=== PATIENT | male | born 1985 | race Caucasian/White ===

== ENCOUNTER 2016-10-07 16:56 | Emergency (ER) | payer OTHER ==
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
--- NOTE | 2016-10-07 17:40 | ED ORDER SUMMARY ---
..... Patient: SHELBY SOTO OrderSheet [facility] VisitID: [id number] [place] [address] 30y, M Registration Date/Time: 10/07/2016 ORDER SHEET Weight: 118.8 kg (stated) Allergies: No Known Drug Allergy GENERAL ORDERS: GC/Chlamydia, Urine (Urine, Clean Catch) (urine) Urgent (17:36 10/07/2016 HBivens A.R.N.P.) (Ack 17:42 HSoule) (19:07 HSoule) HIV I and II Urgent (17:37 10/07/2016 HBivens A.R.N.P.) (Ack 17:44 LNations ER Tech1) (19:07 HSoule) HepBSAG Urgent (17:37 10/07/2016 HBivens A.R.N.P.) (Ack 17:44 LNations ER Tech1) (19:07 HSoule) HepCAB Urgent (17:37 10/07/2016 HBivens A.R.N.P.) (Ack 17:44 LNations ER Tech1) (19:07 HSoule) SGPT Urgent (17:37 10/07/2016 HBivens A.R.N.P.) (Ack 17:44 LNations ER Tech1) (19:07 HSoule) UA-Culture if indicated Urgent (17:37 10/07/2016 HBivens A.R.N.P.) (Ack 17:42 HSoule) (19:07 HSoule) MEDICATION ORDERS: Ceftriaxone IM 250 mg (NOW) (17:36 10/07/2016 HBivens A.R.N.P.) (Ack 17:42 HSoule) (18:03 HSoule) IV FLUIDS: ORDER SHEET NOTES: [Electronically signed by Jenna Mercado (19:10 10/07/2016)] [Electronically signed by Darlin Vidal A.R.N.P. (00:05 10/08/2016)] [Electronically locked/signed by Jenna Mercado (19:10 10/07/2016)]
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
--- NOTE | 2016-10-07 17:40 | ED ORDER SUMMARY ---
..... Patient: SHELBY SOTO OrderSheet [facility] VisitID: [id number] [place] [address] 30y, M Registration Date/Time: 10/07/2016 ORDER SHEET Weight: 118.8 kg (stated) Allergies: No Known Drug Allergy GENERAL ORDERS: GC/Chlamydia, Urine (Urine, Clean Catch) (urine) Urgent (17:36 10/07/2016 HBivens A.R.N.P.) (Ack 17:42 HSoule) (19:07 HSoule) HIV I and II Urgent (17:37 10/07/2016 HBivens A.R.N.P.) (Ack 17:44 LNations ER Tech1) (19:07 HSoule) HepBSAG Urgent (17:37 10/07/2016 HBivens A.R.N.P.) (Ack 17:44 LNations ER Tech1) (19:07 HSoule) HepCAB Urgent (17:37 10/07/2016 HBivens A.R.N.P.) (Ack 17:44 LNations ER Tech1) (19:07 HSoule) SGPT Urgent (17:37 10/07/2016 HBivens A.R.N.P.) (Ack 17:44 LNations ER Tech1) (19:07 HSoule) UA-Culture if indicated Urgent (17:37 10/07/2016 HBivens A.R.N.P.) (Ack 17:42 HSoule) (19:07 HSoule) MEDICATION ORDERS: Ceftriaxone IM 250 mg (NOW) (17:36 10/07/2016 HBivens A.R.N.P.) (Ack 17:42 HSoule) (18:03 HSoule) IV FLUIDS: ORDER SHEET NOTES: [Electronically signed by Jenna Mercado (19:10 10/07/2016)] [Electronically signed by Darlin Vidal A.R.N.P. (00:05 10/08/2016)] [Electronically locked/signed by Jenna Mercado (19:10 10/07/2016)]
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
--- NOTE | 2016-10-08 00:06 | ED DISCHARGE INSTRUCTIONS ---
Patient: SHELBY SOTO General Instructions [facility] VisitID: [id number] [place] [address] 30y, M Registration Date/Time: 10/07/2016 Exposure to STD: chlamydia, gonorrhea and HIV. INSTRUCTIONS Warnings: GENERAL WARNINGS: Return or contact your physician immediately if your condition worsens or changes unexpectedly, if not improving as expected, or if other problems arise. Specifically return if problem worsens. Prescription Medications: Zithromax 500 mg tablets: take 2 orally initially, for the next day. Total course 1 day. No refills. Combivir 150 mg / 300 mg: take 1 tablet orally every 12 hours. Dispense ten (10). No refills. Substitution is permissible. Follow-up: Follow up with your doctor in about three days even if well. Call for an appointment. Summary of care provided to patient. Understanding of the discharge instructions verbalized by patient. ADDITIONAL INFORMATION STD, Suspected [R/O Gc & Chlamydia: Culture Only] Your symptoms suggest that you may have a STD (sexually transmitted disease). The most common bacteria that cause STD's are chlamydia and gonorrhea. Both are highly contagious and are passed by sexual contact with an infected partner. Symptoms begin within 1-3 weeks after exposure. There is usually a discharge from the penis or vagina and burning during urination. Many women with this infection will have only mild symptoms or no symptoms at all early in the disease. Culture tests have been taken. These will show if you have an infection with chlamydia or gonorrhea. This infection can be treated and cured with antibiotic medication. Home Care: 1) Avoid sexual activity until you know that your test result is negative. 2) If a culture was done and it is positive: Both you and your sexual partner need to be treated, even if your partner has no symptoms. Contact your doctor or go to an urgent care clinic or the Public Health Department to be examined and treated. Avoid sexual activity until both you and your partner have completed all antibiotic medicine and told that you are no longer contagious. Learn about safe sex practices and use these in the future. The safest sex is with a partner who has tested negative and only has sex with you. Condoms offer protection from spreading some sexually transmitted diseases including gonorrhea, chlamydia and HIV, but are not a guarantee. 3) Learn about safe sex practices and use these in the future. The safest sex is with a partner who has tested negative and only has sex with you. Condoms offer protection from spreading some sexually transmitted diseases including Gonorrhea, Chlamydia and HIV, but are not a guarantee. Follow Up with your doctor or as advised by our staff. You may call us in three days for the results of your culture, or as directed. If your culture test is positive and you are treated, another culture should be taken 4-6 weeks after treatment to be sure the infection has cleared. Follow up with your doctor or the Public Health Department for complete STD screening, including HIV testing. For more information about STDs, contact the National STD Hotline: . Get Prompt Medical Attention if any of the following occur: -- Fever over 100.4 F (38.0 C) -- New or increasing lower abdominal pain or back pain -- Unexpected vaginal bleeding -- Weakness, dizziness or fainting -- Repeated vomiting -- Inability to urinate due to pain -- Rash or joint pain -- Painful open sores on the penis or around the outer vagina -- Enlarged painful lymph nodes (lumps) in the groin -- Testicle pain or scrotal swelling in men Std (Urethritis) (Male, Adult: Gc Or Chlamydia) You have an infection in the urethra (the channel in the penis that passes urine). This is most often due to a bacterial infection with either "Chlamydia" or "Gonorrhea." This is a sexually transmitted disease (STD). It is highly contagious and passed by sexual contact with an infected partner. Symptoms begin within 1-3 weeks after exposure. There is usually a discharge from the penis and burning during urination. Many women with this infection will have only mild symptoms or no symptoms at all early in the disease. A culture test may be taken to confirm the diagnosis. Antibiotics may be started before the culture test returns. Home Care: Your sexual partner needs to be treated even if there are no symptoms. Your partner should contact their own doctor or go to an urgent care clinic or the Public Health Department to be examined and treated. Avoid sexual activity until both you and your partner have completed all antibiotic medicine, and you have been told by your doctor that you are no longer contagious. Take all antibiotic medicine as directed until it is finished. Otherwise, symptoms may recur. Learn about safe sex practices and use these in the future. The safest sex is with a partner who has tested negative and only has sex with you. Condoms offer protection from spreading some sexually transmitted diseases including Gonorrhea, Chlamydia and HIV, but are not a guarantee. Follow Up with your doctor or as advised by our staff. If a culture test was taken, you may call us in three days for the results, or as directed. Another culture test should be taken 4-6 weeks after treatment to be sure the infection has cleared. Follow up with your doctor or the Public Health Department for complete STD screening, including HIV testing. For more information about STD's, contact the National STD Hotline: . Get Prompt Medical Attention if any of the following occur: No improvement after three days of treatment Inability to urinate due to pain Rash or joint pain Painful sores on the penis Enlarged painful lymph nodes (lumps) in the groin Testicle pain or swelling of the scrotum Genital Herpes Genital herpes is a common sexually transmitted disease (STD). It is caused by the Herpes Simplex virus. One out of five (20%) teens and adults carry the herpes virus. During an outbreak, it causes small blisters that break open, leaving small painful ulcers (sores) in the genital area. Eventually, scabs form and the ulcers heal. In women, these are most often on the skin just outside the vaginal opening. They can occur on the buttocks, anus or cervix. In men, the sores are usually on the tip, sides or base of the penis. They also occur on the scrotum, buttocks or thighs. The first episode begins within 2-3 weeks after exposure to an infected sexual partner. It may last 1-3 weeks and cause headache, muscle ache and fevers. The first outbreak is usually the worst. Because the virus remains in the body even after the sores heal, most persons will have recurrences. The frequency of recurrent outbreaks varies with each person. Some people will never have another outbreak. Others will have several episodes a year. Later outbreaks are usually shorter, milder and less painful. For many, the number of outbreaks tends to decrease over time. Various factors may trigger a recurrence. These include: Emotional stress Menstruation Presence of another illness (cold, flu, or fever from any cause) Overexertion and fatigue Weakened immune system Home Care: It is very important that you do not have sexual relations until ALL the herpes sores have healed completely. Wash the affected area gently with mild soap and water. Wash your hands after touching the affected area. You may use acetaminophen (Tylenol) or ibuprofen (Motrin, Advil) to control pain, unless another pain medicine was prescribed. [NOTE: If you have chronic liver or kidney disease or ever had a stomach ulcer or GI bleeding, talk with your doctor before using these medicines.] Your doctor may prescribe anti-viral medicine during the first outbreak. This will help the sores heal faster. Antiviral medicine may also be prescribed to have at home to take at the first sign of a recurrence. This will shorten the symptoms of a recurrence. For persons with frequent outbreaks, daily therapy may be prescribed. This will reduce the frequency of attacks. Daily therapy may also reduce risk of spread of herpes to your sexual partner. Discuss the risks and benefits of daily therapy with your doctor. If you are a woman who is now or become in the future, let your doctor know that you have had herpes since this may affect the method of delivery. Preventing Spread To Others: The virus is spread by sexual contact with someone who has the herpes virus. The risk of spread is highest when the sores are present. However, there is a chance of spreading the virus even when sores are not visible . Inform future sexual partners that you have herpes and that he/she may become infected. To reduce the risk of passing the virus to a partner who has never had herpes, avoid sexual relations at the first sign of an outbreak and until the ulcers are fully healed. Latex condoms reduce the risk of spread between outbreaks if the infected site is covered, but they do not guarantee protection. Follow-Up: Persons who have just learned that they have herpes may feel guilt, anger, and be emotionally upset. Getting the facts helps put you back in control. Follow up with your doctor or the Public Health Dept for complete STD screening, including HIV testing. For more information about Herpes, see the "National Herpes Resource Center" http://www.ashastd.org/herpes/herpes_overview.cfm ; or call the National STD Hotline: 982.534.3124. Get Prompt Medical Attention if any of the following occur: Inability to urinate due to pain Swelling or increasing redness in the genital area Unusual drowsiness, weakness or confusion Headache, stiff neck Discharge from the vagina or penis Increasing back or abdominal pain Rash or joint pain HIV - AIDS HIV (Human Immune-deficiency Virus) is a virus that attacks the immune system. It decreases the bodys ability to fight infection and to stop the growth of certain types of cancer cells. Being HIV positive is not the same as having AIDS. AIDS (Acquired Immune-deficiency Syndrome) is a complication of an HIV infection (see below). Early in HIV disease, you may have no symptoms. As the disease progresses, and the immune system weakens, HIV symptoms may appear. These include yeast infections of the mouth, fevers, prolonged diarrhea, sores on the sides of the tongue, loss of or altered feeling in the hands or feet, infection with shingles or meningitis. Women may develop recurrent or persistent yeast infection of the vagina, pelvic infection, or an abnormal Pap smear. After infection with HIV, it can take years before developing AIDS. AIDS is diagnosed when an illness occurs that would rarely occur in a person with a normal immune system. These diseases include PCP (pneumocystis) pneumonia, lymphoma, tuberculosis (TB), Kaposi's sarcoma, and others. If you have a positive HIV test, you can spread the virus to others. This is true even if you do not have any symptoms of HIV or AIDS. HIV is most often transmitted by sexual contact (through blood or semen) or by sharing needles/syringes during IV drug use. Routine non-sexual contact does not transmit the disease. Therefore, a person with HIV virus is not contagious to the general population. Without treatment, HIV will almost always lead to AIDS. However, powerful drugs are now available that slow down the growth of the virus. These drugs do not cure HIV infection but make it possible for people with HIV to live a long time. Drug therapy for HIV is usually started based on three factors: 1) the viral load (the amount of virus in your blood); 2) the CD4 cell count (a measure of your immune system); and 3) your symptoms. Home Care: 1) If you have been recently diagnosed with HIV, this news can be a great shock. Psychotherapy, counseling and group support will be very helpful in understanding your feelings, and helping you deal with anxiety and depression. Ask for help. Don't try to get through this on your own. A support system is essential for your physical and emotional health. 2) Develop a take-charge attitude about your own health. Learn the facts about HIV/AIDS. Learn ways to strengthen your immune system through diet, exercise and stress management. 3) Talk to your doctor about the medicines used to treat your condition. Become a participant in your health care. This will help you feel more in control of your health and your life and combat feelings of helplessness. 4) Inform your current and recent sexual contacts of your diagnosis so that they may be tested. For testing, your partner should contact their doctor or the Public Health Dept. Learn about safe-sex practices. Inform any future sexual partners of your diagnosis. Condoms offer protection from spreading HIV, but are not a guarantee. Follow Up with your doctor, or as advised by our staff. You will need routine blood testing to monitor the strength of your immune system. If you are HIV positive without symptoms, watch for symptoms of HIV disease listed above and contact your doctor if these appear. For more information, look at these web sites: http://www.webmd.com/hiv-aids/guide/MML-ADPX-rcmrewqx-facts http://www.aidsinfonet.org/factsheets.php [NOTE: A radiologist will review any X-rays that were taken. We will notify you of any new findings that may affect your care.] Get Prompt Medical Attention if any of the following occur: -- Unexplained fever over 100.4 F (38.0 C) -- Persistent cough or coughing up blood -- Shortness of breath or difficulty breathing -- Severe headache or stiff neck -- Painful, burning rash on one side of the body -- White spots in the mouth -- Vaginal discharge or lower abdominal pain -- Difficulties with your vision -- Extreme weakness, fatigue, or unexplained weight loss Urethritis, Gonorrhea (Male, Treated) You have an infection in the urethra (the channel in the penis that passes urine). This is caused by a bacteria called "Gonorrhea." This infection is a sexually transmitted disease (STD). It is highly contagious and passed by sexual contact with an infected partner. Less often, it can infect the mouth, throat and anus. Symptoms begin within seven days after exposure. They usually include a milky discharge from the penis and burning during urination. Many women with this infection will have only mild symptoms or no symptoms at all early in the disease. This infection can be treated and cured. Treatment is with antibiotic medicine. Home Care: Your sexual partner needs to be treated even if there are no symptoms. Your partner should contact their own doctor or go to an urgent care clinic or the Public Health Department to be examined and treated. Avoid sexual activity until both you and your partner have completed all antibiotic medicine, and you have been told by your doctor that you are no longer contagious. Take all antibiotic medicine as directed until it is finished. Otherwise, symptoms may recur. Learn about safe sex practices and use these in the future. The safest sex is with a partner who has tested negative and only has sex with you. Condoms offer protection from spreading some sexually transmitted diseases including Gonorrhea, Chlamydia and HIV, but are not a guarantee. Follow Up with your doctor or as advised by our staff. If a culture test was taken, you may call us in three days for the results, or as directed. Another culture test should be taken 4-6 weeks after treatment to be sure the infection has cleared. Follow up with your doctor or the Public Health Department for complete STD screening, including HIV testing. For more information about STD's, contact the National STD Hotline: . Get Prompt Medical Attention if any of the following occur: No improvement after three days of treatment Inability to urinate due to pain Rash or joint pain Painful sores on the penis Enlarged painful lymph nodes (lumps) in the groin Testicle pain or swelling of the scrotum Genital Warts Genital warts are painless single or grouped bumps with a flat or rough surface. They occur on the penis, scrotum, vagina, vulva and anus. After exposure to a partner with genital warts, there is about a 60% chance that an infection will occur. It takes about 3 weeks to 3 months for most warts to appear after exposure. However, sometimes a wart may not appear until many years after exposure. This makes it difficult to know exactly who you got the infection from. For this reason, a new genital wart infection does not mean that you or your partner has been unfaithful in the relationship. Genital warts are caused by the human papilloma virus (HPV). This is the most common sexually transmitted disease (STD) in the [place] Over half of all sexually active men and women become infected with HPV at some time in their lives. Most people who become infected with HPV will not have any warts, but they can still transmit the virus. There about 30 types of HPVthat can cause genital warts. Most cause no other problems. However, a few types of HPV can infect a womans cervix. If a cervical infection with one of these viruses goes undiagnosed and untreated, the woman is at increased risk for having cervical cancer. It takes many months to years for signs of cancer to develop from an HPV virus infection of the cervix. However, women with genital warts and women with a partner who has genital warts should be sure they receive regular Pap smear testing to check for changes that may lead to cervical cancer. Most warts go away on their own within 12 months, without treatment. However, treatments are available to remove the warts sooner and reduce the risk of spread to others. There are many types of wart treatments (freezing, cutting, laser, applying liquid or gel to dissolve it). About half the time more than one treatment session is needed to make the wart go away. But even after the wart is gone, the virus remains in the skin and a recurrence of the wart is possible. An HPV vaccine is currently available. Vaccination protects against certain strains of HPV that cause genital warts and cervical cancer. Even though you have HPV, being vaccinated could help protect you from getting other types of HPV in the future. This is true for your partner as well. Ask your healthcare provider if getting vaccinated makes sense for you. Urge your partner to also ask about getting vaccinated. Home Care: If you have been prescribed an ointment or gel to treat the wart, apply it exactly as directed. Be careful not to get it on the nearby normal skin. After treatment, keep the area clean and dry. Wear loose-fitting cotton underwear to avoid chafing. If you have pain after treatment, sit in a tub with a few inches of warm water for 20 minutes, 3 times a day, for the next 2 to 3days. Add a cup of cornstarch or baking soda, or a packet of Aveeno Oatmeal or Domeboro powder (both available without a prescription), to soothe the skin. Preventing Spread To Others: This virus is spread by sexual contact with someone who is infected.The risk of spread is highest when visible warts are present. However, there is a very small chance of spreading the virus even after treatment, when the wart is not visible. Condoms offer only limited protection from the spread of warts. Partners tend to share the same HPV types, so it is probably not necessary to refrain from sex with your current partner. However, do not have sex with any new partner until all visible warts are gone. Men should inform current and future sexual partners that they have had genital warts. This way, the woman can be sure to have regular Pap smear testing with her doctor. Follow-Up: Persons who have just learned that they have genital warts may feel guilt, anger, and be emotionally upset. Getting the facts helps put you back in control. Follow up with your doctor or the Public Health Department for complete STD screening, including HIV testing. For more information call the National STD Hotline: 415.321.1168. After treatment, you should be rechecked in about 3 months to be sure all warts are gone. Get Prompt Medical Attention if any of the following occur: After treating a wart: Redness or burning that does not stop within a few hours Swelling of the tissues around the treated area Pus draining from the treated area Difficulty passing urine or stool Discharge from the vagina or penis Rash or joint pain Urethritis, Chlamydia [Male, Treated] You have an infection in the urethra (the channel in the penis that carries urine). This is caused by a bacteria called "Chlamydia". This infection is a sexually transmitted disease. It is highly contagious and is passed by sexual contact with an infected partner. Symptoms begin within three weeks after exposure. There is usually a watery discharge from the penis and burning during urination. Many women with this infection will have only mild symptoms or no symptoms at all early in the disease. This infection can be treated and cured. Treatment is with antibiotic medicine. Home Care: 1) Your sexual partner needs to be treated even if there are no symptoms. Your partner should contact their own doctor or go to an urgent care clinic or the Public Health Department to be examined and treated. 2) Avoid sexual activity until both you and your partner have completed all antibiotic medicine, and you have been told by your doctor that you are no longer contagious. 3) Take all antibiotic medicine as directed until it is finished. Otherwise, symptoms may recur. 4) Learn about safe sex practices and use these in the future. The safest sex is with a partner who has tested negative and only has sex with you. Condoms offer protection from spreading some sexually transmitted diseases including Gonorrhea, Chlamydia and HIV, but are not a guarantee. Follow Up with your doctor or as advised by our staff. If a culture test was taken, you may call us in three days for the results, or as directed. Another culture test should be taken 4-6 weeks after treatment to be sure the infection has cleared. Follow up with your doctor or the Public Health Department for complete STD screening, including HIV testing. For more information about STD's, contact the National STD Hotline: . Get Prompt Medical Attention if any of the following occur: -- No improvement after three days of treatment -- Inability to urinate due to pain -- Rash or joint pain -- Painful sores on the penis -- Enlarged painful lymph nodes (lumps) in the groin -- Testicle pain or swelling of the scrotum Azithromycin Oral tablet What is this medicine? AZITHROMYCIN (az ith nadia MYE sin) is a macrolide antibiotic. It is used to treat or prevent certain kinds of bacterial infections. It will not work for colds, flu, or other viral infections. How should I use this medicine? Take this medicine by mouth with a full glass of water. Follow the directions on the prescription label. The tablets can be taken with food or on an empty stomach. If the medicine upsets your stomach, take it with food. Take your medicine at regular intervals. Do not take your medicine more often than directed. Take all of your medicine as directed even if you think your are better. Do not skip doses or stop your medicine early. Talk to your trial justice regarding the use of this medicine in children. Special care may be needed. What side effects may I notice from receiving this medicine? Side effects that you should report to your doctor or health adult caregiver as soon as possible: allergic reactions like skin rash, itching or hives, swelling of the face, lips, or tongue confusion, nightmares or hallucinations dark urine difficulty breathing hearing loss irregular heartbeat or chest pain pain or difficulty passing urine redness, blistering, peeling or loosening of the skin, including inside the mouth white patches or sores in the mouth yellowing of the eyes or skin Side effects that usually do not require medical attention (report to your doctor or health adult caregiver if they continue or are bothersome): diarrhea dizziness, drowsiness headache stomach upset or vomiting tooth discoloration vaginal irritation What may interact with this medicine? Do not take this medicine with any of the following medications: lincomycin This medicine may also interact with the following medications: amiodarone antacids cyclosporine digoxin magnesium nelfinavir phenytoin warfarin What if I miss a dose? If you miss a dose, take it as soon as you can. If it is almost time for your next dose, take only that dose. Do not take double or extra doses. Where should I keep my medicine? Keep out of the reach of children. Store at room temperature between 15 and 30 degrees C (59 and 86 degrees F). Throw away any unused medicine after the expiration date. What should I tell my health care provider before I take this medicine? They need to know if you have any of these conditions: kidney disease liver disease irregular heartbeat or heart disease an unusual or allergic reaction to azithromycin, erythromycin, other macrolide antibiotics, foods, dyes, or preservatives or trying to get breast-feeding What should I watch for while using this medicine? Tell your doctor or health adult caregiver if your symptoms do not improve. Do not treat diarrhea with over the counter products. Contact your doctor if you have diarrhea that lasts more than 2 days or if it is severe and watery. This medicine can make you more sensitive to the sun. Keep out of the sun. If you cannot avoid being in the sun, wear protective clothing and use sunscreen. Do not use sun lamps or tanning beds/booths. You have been given the following additional information: STD, Suspected (Culture Only) Urethritis, Male (Gc Vs. Chlam) Herpes Genitalis, Hsv: Type Ii HIV-AIDS, New Dx Urethritis, Male (Gonorrhea) Warts, Genital Chlamydia, Male Azithromycin Oral tablet (Electronically signed by Darlin Vidal A.R.NElizabeth 10/08/2016 0:05)
--- NOTE | 2016-10-08 00:06 | ED MAR SUMMARY ---
..... Medication Administration Record [facility] [address] [place] [address] Patient: SHELBY SOTO Visit ID: [id number] 30y, M Weight: 118.8 kg Height/Length: 66 in BMI: 42.3 ALLERGIES: No Known Drug Allergy Given 17:53 10/07/2016 Jenna Mercado, Medication Administered: CEFTRIAXONE [IM], Dose: 250 mg IM. Medication Ordered: Ceftriaxone IM 250 mg (NOW).
--- NOTE | 2016-10-08 00:06 | ED MED RECONCILIATION SUMMARY ---
Patient: SHELBY SOTO Medication Reconciliation Report [facility] VisitID: [id number] [address] [place] [address] 30y, M Registration Date/Time: 10/07/2016 Weight: 118.8 kg Height/Length: 66 in. BMI: 42.3 ALLERGIES: No Known Drug Allergy The patient's Home Medications are listed below: THE FOLLOWING MEDICATIONS NEED TO BE RECONCILED: Atorvastatin Calcium Oral FluPHENAZine HCl Oral (5 mg), 2 tab in am & 3 tab in evening Gabapentin Oral (300 mg), 3x a day HumaLOG Subcutaneous HumuLIN N Subcutaneous Omeprazole Oral 40 mg, daily Prochlorperazine Maleate Oral 5 mg, 2x a day, 1-2 tabs Propranolol HCl Oral 40 mg, daily Ranitidine HCl Oral (150 mg), 2x a day Sertraline HCl Oral (100 mg), 3x a day Xanax Oral 0.5 mg, 2x a day Zofran Oral 8 mg, 2x a day The source(s) of the original Home Medication information: patient The following Medications were given to the patient in the Emergency Department: Ceftriaxone [IM] IM 250 mg, administered: 10/07/2016 5:53:00 PM The following Medications were prescribed to the patient: Zithromax 500 mg tablets: take 2 orally initially, for the next day. Total course 1 day. No refills. -- Darlin Vidal A.R.NRebeccaPRebecca Combivir 150 mg / 300 mg: take 1 tablet orally every 12 hours. Dispense ten (10). No refills. Substitution is permissible. -- Darlin Vidal A.R.NRebeccaPRebecca
--- NOTE | 2016-10-08 00:06 | ED MED RECONCILIATION SUMMARY ---
Patient: SHELBY SOTO Medication Reconciliation Report [facility] VisitID: [id number] [address] [place] [address] 30y, M Registration Date/Time: 10/07/2016 Weight: 118.8 kg Height/Length: 66 in. BMI: 42.3 ALLERGIES: No Known Drug Allergy The patient's Home Medications are listed below: THE FOLLOWING MEDICATIONS NEED TO BE RECONCILED: Atorvastatin Calcium Oral FluPHENAZine HCl Oral (5 mg), 2 tab in am & 3 tab in evening Gabapentin Oral (300 mg), 3x a day HumaLOG Subcutaneous HumuLIN N Subcutaneous Omeprazole Oral 40 mg, daily Prochlorperazine Maleate Oral 5 mg, 2x a day, 1-2 tabs Propranolol HCl Oral 40 mg, daily Ranitidine HCl Oral (150 mg), 2x a day Sertraline HCl Oral (100 mg), 3x a day Xanax Oral 0.5 mg, 2x a day Zofran Oral 8 mg, 2x a day The source(s) of the original Home Medication information: patient The following Medications were given to the patient in the Emergency Department: Ceftriaxone [IM] IM 250 mg, administered: 10/07/2016 5:53:00 PM The following Medications were prescribed to the patient: Zithromax 500 mg tablets: take 2 orally initially, for the next day. Total course 1 day. No refills. -- Darlin Vidal A.R.NRebeccaPRebecca Combivir 150 mg / 300 mg: take 1 tablet orally every 12 hours. Dispense ten (10). No refills. Substitution is permissible. -- Darlin Vidal A.R.NRebeccaPRebecca
--- NOTE | 2016-10-08 00:06 | ED MAR SUMMARY ---
..... Medication Administration Record [facility] [address] [place] [address] Patient: SHELBY SOTO Visit ID: [id number] 30y, M Weight: 118.8 kg Height/Length: 66 in BMI: 42.3 ALLERGIES: No Known Drug Allergy Given 17:53 10/07/2016 Jenna Mercado, Medication Administered: CEFTRIAXONE [IM], Dose: 250 mg IM. Medication Ordered: Ceftriaxone IM 250 mg (NOW).
== END 2016-10-07 17:50 | disposition home or self-care (01) ==
LOC: ED SRH 16:56
DX: Z03.89 Encounter for observation for other suspected diseases and conditions ruled out (principal); Z20.2 Contact with and (suspected) exposure to infections with a predominantly sexual mode of transmission; Z20.6 Contact with and (suspected) exposure to human immunodeficiency virus [HIV]; E11.9 Type 2 diabetes mellitus without complications; Z79.899 Other long term (current) drug therapy; Z79.4 Long term (current) use of insulin
CPT/HCPCS: 90004; 90074; 90078; 90364; 91227; 91228; 92800; 92863; 99777